=== PATIENT | male | born 1975 | race Caucasian/White ===

== ENCOUNTER 2017-03-18 19:59 | Emergency (ER) | payer MEDICAID, OTHER ==
[2017-03-18 20:03] VITALS: BP 131/94
--- NOTE | 2017-03-18 22:50 | ED ---
Medical Screening - HPI Summary HPI Summary: Pt presents for pre-detox screening. He plans to go to [facility] and they require an ECG, CBC, CMP and urine drug tox screen prior to admission. He does not have a PCP and so was instructed to come here for these tests. Would like information faxed upon completion. Reports his drug of choice is heroine. Denies any complaints at this time, including pain/redness/swelling at injections site/sites. - History of Current Complaint Chief Complaint: EDGeneral Stated Complaint: DETOX Time Seen by Provider: 03/18/17 22:15 PMH/Surg Hx/FS Hx/Imm Hx Previously Healthy: Yes Respiratory History: Reports: Hx Asthma - well controlled Psychiatric History: Reports: Hx Substance Abuse - heroine Infectious Disease History: No Infectious Disease History: Denies: Traveled Outside the [place] in Last 30 Days - Family History Known Family History: Positive: Diabetes - Social History Occupation: Unemployed Lives: With Family Alcohol Use: None Substance Use Type: Reports: Heroin - currently Smoking Status (MU): Current Some Day Smoker Have You Smoked in the Last Year: Yes Review of Systems Negative: Fever, Chills Negative: Chest Pain Negative: Shortness Of Breath Negative: Abdominal Pain, Vomiting, Diarrhea, Nausea Positive: no symptoms reported Negative: Arthralgia, Myalgia Skin: Negative - see HPI Negative: Rash Neurological: Negative Psychological: Normal All Other Systems Reviewed And Are Negative: Yes Physical Exam Triage Information Reviewed: Yes Vital Signs On Initial Exam: Initial Vitals Temp Pulse Resp BP Pulse Ox 98.0 F 111 13 131/94 100 03/18/17 20:02 03/18/17 20:02 03/18/17 20:02 03/18/17 20:02 03/18/17 20:02 Vital Signs Reviewed: Yes Appearance: Positive: Well-Appearing, No Pain Distress, Well-Nourished Skin: Positive: Warm, Dry Head/Face: Positive: Normal Head/Face Inspection Eyes: Positive: Normal, EOMI, Conjunctiva Clear ENT: Positive: Hearing grossly normal, Pharynx normal - mucosa moist Neck: Positive: Supple, Nontender Respiratory/Lung Sounds: Positive: Clear to Auscultation, Breath Sounds Present Cardiovascular: Positive: Normal, RRR Abdomen Description: Positive: Nontender, Soft Musculoskeletal: Positive: Normal, Strength/ROM Intact Neurological: Positive: Normal, Sensory/Motor Intact, Alert, Oriented to Person Place, Time, CN Intact II-III Psychiatric: Positive: Normal - anxious to leave, Other Diagnostics - Vital Signs Vital Signs Temp Pulse Resp BP Pulse Ox 03/18/17 20:02 98.0 F 111 13 131/94 100 - Laboratory Result Diagrams: 03/18/17 23:20 03/18/17 23:20 Lab Statement: Any lab studies that have been ordered have been reviewed, and results considered in the medical decision making process. Course/Dx - Course Course Of Treatment: Pt does not appear to have any pertinent medical issues at this time. He plans to attend detox program for cessation of heroine at through [facility] in next day or so. Paperwork faxed per Yesenia tijerina. - Diagnoses Provider Diagnoses: Encounter for medical screening examination Discharge - Discharge Plan Condition: Stable Disposition: HOME Referrals: No Primary Care Phys,NOPCP [Primary Care Provider] - Additional Instructions: Your medical screening exam will be faxed to [facility] in [facility]. Follow-up with your medical team as directed. *If you develop chest pain, shortness of breath, fever, suicidal ideations, return to ED
[2017-03-18 23:29] LABS: Hematocrit 48 % (42-52); Mean Corpuscular HGB Conc 33 g/dl (31-36); Mean Corpuscular Hemoglobin 28 pg (27-31); Mean Corpuscular Volume 85 fL (80-94); Mean Platelet Volume 8 um3 (7.4-10.4); Red Blood Count 5.69 10^6/ul (4.0-5.4); Red Cell Distribution Width 13 % (10.5-15); White Blood Count 7.7 10^3/ul (3.5-10.8)
[2017-03-18 23:34] LABS: Benzodiazepine Urine Screen None Detected (None Detect)
[2017-03-18 23:45] LABS: Albumin 4.5 g/dL (3.2-5.2); BUN/Creatinine Ratio 10.4 (8-20); Calcium 10.2 mg/dL (8.6-10.3); EGFR African American 98.1 (>60); EGFR Non-African American 76.3 (>60); Globulin 3.5 g/dL (2-4); Potassium 3.8 mmol/L (3.5-5.0); Total Bilirubin 0.6 mg/dL (0.2-1.0)
== END 2017-03-19 00:01 | disposition home or self-care (01) ==
LOC: ED 19:59
DX: Z00.00 Encounter for general adult medical examination without abnormal findings (principal); F17.200 Nicotine dependence, unspecified, uncomplicated; F11.10 Opioid abuse, uncomplicated; J45.909 Unspecified asthma, uncomplicated
CPT/HCPCS: 36415; 80053; 80307; 85025; 93005; 99282